=== PATIENT | female | born 1970 | race Caucasian/White ===

== ENCOUNTER 2017-03-29 06:15 | Day surgery (SDC) | payer OTHER ==
[2017-03-26 08:28] VITALS: BMI 28.3
[2017-03-29] MEDS ORDERED: LIDOCAINE HCL/PF 2% SDV 5ML VIAL ONE ×2 (07:20→08:05)
[2017-03-29] MEDS ORDERED: PROPOFOL 20 ML ONE ×2 (07:21→08:04)
[2017-03-29] MEDS ORDERED: SUCCINYLCHOLINE CHLORIDE 200 MG/10 ML VIAL ONE (07:22)
[2017-03-29] MEDS ORDERED: MIDAZOLAM HCL 2 MG/2 ML SINGLE DOSE VIAL ONE (07:55)
[2017-03-29] MEDS ORDERED: ACETAMINOPHEN 325 MG TABLET (FP) PO PRN (08:04)
[2017-03-29] MEDS ORDERED: IBUPROFEN 400 MG TABLET (FP) PO PRN (08:04)
--- NOTE | 2017-03-29 08:04 | HP ---
History & Physical Update - History History: No Change - Physical Physical: No Change - Assessment Assessment: No Change - Plan Plan: No Change
--- NOTE | 2017-03-29 08:09 | OP ---
Operative Note - Note: Operative Date: 03/29/17 Pre-Operative Diagnosis: Endometrial polyp Operation: Hysteroscopic myomectomy. Suction DC Post-Operative Diagnosis: Same as Pre-op Anesthesia: General Operative Report Dictated: Yes
[2017-03-29] MEDS ORDERED: DEXAMETHASONE SOD PHOSPHATE 4 MG/1 ML VIAL ONE (08:15)
[2017-03-29] MEDS ORDERED: PHENYLEPHRINE HCL 10 MG/1 ML SINGLE DOSE VIAL ONE (08:18)
[2017-03-29] MEDS ORDERED: ROCURONIUM BROMIDE 50 MG/5 ML VIAL ONE (08:21)
[2017-03-29] MEDS ORDERED: KETOROLAC TROMETHAMINE 30 MG/1 ML VIAL ONE (08:22)
[2017-03-29] MEDS ORDERED: ONDANSETRON 4 MG/2 ML VIAL IVPUSH PRN (08:48)
[2017-03-29] MEDS ORDERED: MEPERIDINE HCL CARPU-JECT 25 MG/1 ML DISP.SYRIN ONE (08:51)
[2017-03-29 09:37] VITALS: TEMP 98.1
[2017-03-29 09:53] VITALS: PULSE 56
[2017-03-29 12:04] VITALS: BP 115/68
--- NOTE | 2017-03-29 18:43 | OP ---
DATE OF OPERATION: 03/29/2017 PREOPERATIVE DIAGNOSIS: Endometrial polyp. OPERATION: Hysteroscopic myomectomy, suction dilatation and curettage. POSTOPERATIVE DIAGNOSES: 1. Endometrial polyp. 2. Submucosal myoma. SURGEON: Annie Dan MD ANESTHESIA: General. ANESTHESIOLOGIST: FINDINGS: Endometrial polyp as well as submucosal myoma, removed and submucosal myoma less than 1 cm, removed. DESCRIPTION OF PROCEDURE: Patient was taken to the operating room and placed in dorsal lithotomy position, prepped and draped in usual sterile fashion. A timeout was performed in accordance to hospital regulation. Speculum was placed in the vagina. Anterior lip of the cervix grasped with single-tooth tenaculum. Cervix then dilated to accommodate the operative hysteroscope. Hysteroscopy was performed, and a submucosal myoma and endometrial polyps were seen. Hysteroscopic myomectomy was performed and removal of polyps and submucosal myoma. After hysteroscopic myomectomy done, suction D&C was performed. Process was repeated approximately 3 times to remove the myoma. Polyp forceps were used to remove sometimes the shavings of the submucosal myoma, and suction D&C was done. Visualization of the cavity revealed a better cavity, still myomas seen in the muscle. All instruments were then removed. Patient had tolerated the procedure well. Estimated blood loss was 25 mL. ANNIE DAN M.D. [id number] [id number]
--- NOTE | 2017-03-30 18:40 | PATH ---
Surgical Pathology Report Patient Name: RISHI IGLESIAS [facility]. Rec. #: [id number] /Age/Gender: 1970 (Age: 47) / F Account: [id number] Location: [facility] Taken: 03/29/2017 Received: 03/29/2017 Reported: 03/30/2017 Physicians: Annie Dan M.D. Specimen(s) Received A: SUBMUCOSAL MYOMA/ POLYP B: SUBMUCOSAL MYOMA Clinical History Submucosal fibroid Final Diagnosis A. UTERUS, SUBMUCOSAL MYOMA/POLYP, HYSTEROSCOPIC MYOMECTOMY: FRAGMENTS OF SMOOTH MUSCLE CONSISTENT WITH SUBMUCOSAL LEIOMYOMA AND SECRETORY ENDOMETRIUM. B. UTERUS, SUBMUCOSAL MYOMA, HYSTEROSCOPIC MYOMECTOMY: FRAGMENTS OF SMOOTH MUSCLE CONSISTENT WITH SUBMUCOSAL LEIOMYOMA AND SECRETORY ENDOMETRIUM. Electronically Signed Rosenda Doshi M.D. Gross Description A. Received in formalin labeled "submucosal myoma/polyp," is a 7 g, 4.0 x 4.0 x 0.5 cm aggregate of robles, firm to rubbery and soft tissue fragments. The formalin is filtered and the specimen is entirely submitted in 4 cassettes. B. Received in formalin labeled "submucosal myoma," is a less than 1 g, 1.0 x 1.0 x 0.2 cm aggregate of rolbes, firm to rubbery tissue fragments. The specimen is entirely submitted in one cassette. 03/29/201703/29/2017
== END 2017-03-29 12:05 | disposition home or self-care (01) ==
LOC: JASU-SURG 06:15
PROVIDERS: ATTEND Obstetrics & Gynecology
PROC: 0UB98ZZ Excision of Uterus, Via Natural or Artificial Opening Endoscopic (ICD-10-PCS; principal; 2017-03-29 08:00)
PROC: 0UDB8ZX Extraction of Endometrium, Via Natural or Artificial Opening Endoscopic, Diagnostic (ICD-10-PCS; 2017-03-29 08:00)
DX: N84.0 Polyp of corpus uteri (principal); D25.0 Submucous leiomyoma of uterus
CPT/HCPCS: 84703; 88305-TC; 94760

== ENCOUNTER 2019-05-10 10:26 | Day surgery (SDC) | payer OTHER ==
[2019-04-24 10:31] VITALS: BMI 26.2
[2019-05-10 12:03] VITALS: PULSE 59
[2019-05-10 12:39] VITALS: BP 105/55
[2019-05-10 12:40] VITALS: TEMP 97.4
--- NOTE | 2019-05-11 15:12 | PATH ---
Surgical Pathology Report Patient Name: RISHI IGLESIAS [facility]. Rec. #: [id number] /Age/Gender: 1970 (Age: 49) / F Account: [id number] Location: [facility] Taken: 05/10/2019 Received: 05/10/2019 Reported: 05/11/2019 Physicians: Rosenda Montero M.D. Specimen(s) Received A: SECOND PORTION DUODENUM B: ANTRUM C: GE JUNCTION Clinical History Abdominal pain Postoperative diagnosis: Gastritis Final Diagnosis A. SECOND PORTION OF DUODENUM, BIOPSY: DUODENUM MUCOSA WITH NO SIGNIFICANT PATHOLOGIC CHANGE. NO HISTOLOGIC EVIDENCE OF CELIAC DISEASE. B. GASTRIC ANTRUM, BIOPSY: GASTRIC MUCOSA WITH CHRONIC GASTRITIS AND INTESTINAL METAPLASIA. IMMUNOSTAIN FOR H. PYLORI IS NEGATIVE. C. GE JUNCTION, BIOPSY: COLUMNAR/SQUAMOUS JUNCTIONAL MUCOSA WITH REFLUX ESOPHAGITIS. NEGATIVE FOR INTESTINAL METAPLASIA. Electronically Signed Duke Holguin M.D. Gross Description A. Received in formalin, labeled "biopsy second portion of duodenum" is a robles, irregular portion of soft tissue measuring 0.3 cm. in greatest dimension. The specimen is submitted in toto in one cassette. B. Received in formalin, labeled "biopsy gastric antrum" is a robles, irregular portion of soft tissue measuring 0.3 cm. in greatest dimension. The specimen is submitted in toto in one cassette. C. Received in formalin, labeled "biopsy GE junction" is a robles, irregular portion of soft tissue measuring 0.5 cm. in greatest dimension. The specimen is submitted in toto in one cassette. /05/10/2019 saudi05/10/2019
== END 2019-05-10 12:43 | disposition home or self-care (01) ==
LOC: FASU-ENDO 10:26
PROVIDERS: ATTEND Internal Medicine Gastroenterology
PROC: 0DB68ZX Excision of Stomach, Via Natural or Artificial Opening Endoscopic, Diagnostic (ICD-10-PCS; 2019-05-10)
PROC: 0DB48ZX Excision of Esophagogastric Junction, Via Natural or Artificial Opening Endoscopic, Diagnostic (ICD-10-PCS; 2019-05-10)
PROC: 0DB98ZX Excision of Duodenum, Via Natural or Artificial Opening Endoscopic, Diagnostic (ICD-10-PCS; principal; 2019-05-10 11:11)
DX: K21.9 Gastro-esophageal reflux disease without esophagitis (principal); K29.50 Unspecified chronic gastritis without bleeding; K31.9 Disease of stomach and duodenum, unspecified; K21.0 Gastro-esophageal reflux disease with esophagitis
CPT/HCPCS: 84703

== ENCOUNTER 2023-02-08 05:12 | Day surgery (SDC) | payer OTHER ==
[2023-02-04 09:37] VITALS: BMI 27.4
[2023-02-08] MEDS ORDERED: GABAPENTIN 300 MG CAPSULE ONE (06:48)
[2023-02-08] MEDS ORDERED: ceFAZolin SODIUM 1 GM VIAL ONE ×2 (06:49→07:44)
[2023-02-08] MEDS ORDERED: PHENAZOPYRIDINE HCL 100 MG TABLET (FP) ONE (06:49)
[2023-02-08] MEDS ORDERED: GABAPENTIN 300 MG CAPSULE PO ONE ×2 (07:00)
[2023-02-08] MEDS ORDERED: ACETAMINOPHEN 1000 MG/100 ML BAG IVPB ONE ×2 (07:00→09:47)
[2023-02-08] MEDS ORDERED: TRANEXAMIC ACID 1000 MG/10 ML VIAL IVPUSH ONE (07:00)
[2023-02-08] MEDS ORDERED: PHENAZOPYRIDINE HCL 100 MG TABLET (FP) PO ONE ×2 (07:00)
[2023-02-08] MEDS ORDERED: HEPARIN NA (PORCINE) 5,000 UNITS/ML 1ML VIAL ONE (07:17)
[2023-02-08] MEDS ORDERED: ROCURONIUM BROMIDE 50 MG/5 ML SYRINGE ONE (07:24)
[2023-02-08] MEDS ORDERED: PROPOFOL 20 ML ONE (07:24)
[2023-02-08] MEDS ORDERED: MIDAZOLAM HCL 2 MG/2 ML SINGLE DOSE VIAL ONE (07:24)
[2023-02-08] MEDS ORDERED: FENTANYL CITRATE/PF 50 MCG/ML VIAL ONE ×2 (07:24→08:23)
[2023-02-08] MEDS ORDERED: BUPIVACAINE HCL/PF 0.5% (5MG/ML) 10 ML VIAL ONE (07:27)
[2023-02-08] MEDS ORDERED: CEFAZOLIN 2 GM in DEXTROSE 5%-WATER - 100 ML IVPB ONE (07:30)
[2023-02-08] MEDS ORDERED: ceFAZolin SODIUM 1 GM VIAL IVPB ONE (07:44)
[2023-02-08] MEDS ORDERED: DEXAMETHASONE SOD PHOSPHATE 4 MG/1 ML VIAL ONE (07:45)
[2023-02-08] MEDS ORDERED: ONDANSETRON 4 MG/2 ML VIAL ONE ×2 (07:45→09:14)
[2023-02-08] MEDS ORDERED: BUPIVACAINE HCL/PF 0.5% (5MG/ML) 10 ML VIAL IJ ONE (07:53)
[2023-02-08] MEDS ORDERED: GLYCOPYRROLATE 0.2 MG/1 ML VIAL ONE ×2 (08:08→09:27)
[2023-02-08] MEDS ORDERED: HYDROmorphone HCl 2 MG/ML VIAL ONE (08:23)
[2023-02-08] MEDS ORDERED: NEOSTIGMINE METHYLSULFATE 0.5 MG/1 ML - 10 ML MDV ONE (09:27)
[2023-02-08] MEDS ORDERED: LIDOCAINE HCL/PF 2% SDV 5ML VIAL ONE (09:27)
[2023-02-08] MEDS ORDERED: ONDANSETRON 4 MG/2 ML VIAL IVPUSH PRN ×2 (09:47→09:56)
[2023-02-08] MEDS ORDERED: KETOROLAC TROMETHAMINE 30 MG/1 ML VIAL IVPUSH ONE (09:47)
[2023-02-08] MEDS ORDERED: SIMETHICONE 80 MG TAB.CHEW (FP) PO PRN (09:56)
[2023-02-08] MEDS ORDERED: BISACODYL 5 MG TABLET.DR (FP) PO PRN (09:56)
[2023-02-08] MEDS ORDERED: DOCUSATE SODIUM 100 MG CAPSULE (FP) PO PRN (09:56)
[2023-02-08] MEDS ORDERED: oxyCODONE HCL 5 MG TABLET PO PRN ×2 (09:56)
[2023-02-08] MEDS ORDERED: LACTATED RINGERS SOLUTION 1,000 ML IV SCH (10:00)
[2023-02-08] MEDS ORDERED: ACETAMINOPHEN 1000 MG/100 ML BAG IVPB SCH (10:00)
[2023-02-08] MEDS ORDERED: LACTATED RINGERS SOLUTION 1,000 ML/1,000 ML INFUS.BAG IV SCH (10:00)
[2023-02-08] MEDS: HYDROmorphone HCl 2 MG/ML VIAL IVPUSH PRN ×2 (10:18→10:26)
[2023-02-08] MEDS: CEFAZOLIN 1 GM in DEXTROSE 5%-WATER - 50 ML IVPB SCH ×2 (15:55→23:56)
[2023-02-08] MEDS: ACETAMINOPHEN 1000 MG/100 ML BAG IVPB SCH ×2 (16:53→21:19)
[2023-02-08 19:48] LABS: HEMATOCRIT 36.9 % (32.4-45.2); HEMOGLOBIN 12.5 GM/dL (10.7-15.3); MCH 28.4 pg (25.7-33.7); MCHC 33.9 g/dl (32.0-36.0); MEAN CELL VOLUME 83.9 fl (80-96); MEAN PLT VOLUME 8.5 fl (7.5-11.1); PLATELET COUNT 223 10^3/uL (134-434); RBC 4.39 M/mm3 (3.60-5.2); RDW 14.2 % (11.6-15.6); WHITE BLOOD COUNT 8.9 K/mm3 (4.0-10.0)
[2023-02-08 20:09] LABS: POTASSIUM 4.4 mmol/L (3.5-5.1)
[2023-02-08 20:11] LABS: CALCIUM 8.6 mg/dL (8.5-10.1)
[2023-02-08 20:12] LABS: BLOOD UREA NITROGEN 11.9 mg/dL (7-18)
[2023-02-08 20:15] LABS: CREATININE 0.7 mg/dL (0.55-1.3)
[2023-02-09] MEDS: ACETAMINOPHEN 1000 MG/100 ML BAG IVPB SCH (04:50)
[2023-02-09] MEDS ORDERED: IBUPROFEN 800 MG/8 ML IJ IVPB PRN (08:06)
[2023-02-09 08:28] LABS: HEMOGLOBIN 11.3 GM/dL (10.7-15.3); MCH 28.1 pg (25.7-33.7); MCHC 33.1 g/dl (32.0-36.0); MEAN CELL VOLUME 84.9 fl (80-96); MEAN PLT VOLUME 8.6 fl (7.5-11.1); PLATELET COUNT 222 10^3/uL (134-434); RBC 4.01 M/mm3 (3.60-5.2); RDW 13.8 % (11.6-15.6); WHITE BLOOD COUNT 8.6 K/mm3 (4.0-10.0)
[2023-02-09 08:41] VITALS: BP 103/68; PULSE 70; RESP 19
[2023-02-09 08:42] VITALS: TEMP 98.9
[2023-02-09 08:49] LABS: POTASSIUM 4.1 mmol/L (3.5-5.1)
[2023-02-09 08:53] LABS: BLOOD UREA NITROGEN 12.3 mg/dL (7-18); CALCIUM 8.4 mg/dL (8.5-10.1)
[2023-02-09 08:57] LABS: CREATININE 0.8 mg/dL (0.55-1.3)
[2023-02-09] MEDS ORDERED: ENOXAPARIN NA (PORCINE) 40 MG/0.4 ML DISP.SYRIN SQ SCH (10:00)
[2023-02-09] MEDS ORDERED: IBUPROFEN 800 MG/8 ML IJ IVPB SCH (11:15)
[2023-02-09] MEDS ORDERED: ACETAMINOPHEN 500 MG TABLET (FP) PO SCH (12:00)
== END 2023-02-09 14:15 | disposition home or self-care (01) ==
LOC: JASUSAT 05:12 → J3W 12:05 → JASUSAT 02-09 14:15
PROVIDERS: ATTEND Obstetrics & Gynecology
PROC: 0UT74ZZ Resection of Bilateral Fallopian Tubes, Percutaneous Endoscopic Approach (ICD-10-PCS; 2023-02-08)
PROC: 0UT94ZZ Resection of Uterus, Percutaneous Endoscopic Approach (ICD-10-PCS; principal; 2023-02-08 07:30)
DX: D25.1 Intramural leiomyoma of uterus (principal); N83.8 Other noninflammatory disorders of ovary, fallopian tube and broad ligament; N92.0 Excessive and frequent menstruation with regular cycle; N94.6 Dysmenorrhea, unspecified
CPT/HCPCS: 58571; S2900; 36415; 80048; 85027; 86850; 86900; 86901; 88305-TC; 88307-TC; 94010; 94760; J1644